=== PATIENT | female | born 1930 | race Caucasian/White ===

== ENCOUNTER 2018-10-06 13:28 | Emergency (ER) | payer MEDICARE, BC ==
[~2018-10-06] VITALS: Ht 172.7 cm; Wt 75.3 kg
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
--- NOTE | 2018-10-06 15:23 | Diagnostic Imaging Report ---
Exam: Lumbar spine AP lateral History: Back pain Comparison: None. Findings: Limited crosstable lateral. Advanced multilevel degenerative disc disease throughout the lumbar spine with narrowing and osteophytosis. Bone demineralization. Impression: No acute osseous abnormality Advanced multilevel spondyloarthropathy. Signed by: Dr. Rich Foster M.D. on 10/06/2018 3:20 PM
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
--- NOTE | 2018-10-06 19:12 | NUR ---
Attempted to call report to [facility] at this time without success. Will reattempt.
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
== END 2018-10-06 20:07 | disposition home or self-care (01) ==
LOC: ER 13:28
DX: M54.5 Low back pain (principal); S50.812A Abrasion of left forearm, initial encounter; S70.02XA Contusion of left hip, initial encounter; V53.6XXA Passenger in pick-up truck or van injured in collision with car, pick-up truck or van in traffic accident, initial encounter; Y92.488 Other paved roadways as the place of occurrence of the external cause
CPT/HCPCS: 70450; 72110; 72125; 72170; 72192; 99283